=== PATIENT | male | born 1990 | race African-American/Black ===

== ENCOUNTER 2019-11-26 05:10 | Emergency (ER) | payer OTHER ==
[~2019-11-26] VITALS: Ht 172.7 cm; Wt 72.6 kg
[2019-11-26 05:18] VITALS: BP 120/57
[2019-11-26 05:48] VITALS: BP 120/57
== END 2019-11-26 05:47 ==
LOC: MED 05:10
DX: M25.512 Pain in left shoulder (principal); Z98.890 Other specified postprocedural states; Z02.89 Encounter for other administrative examinations; V89.2XXA Person injured in unspecified motor-vehicle accident, traffic, initial encounter; Y93.89 Activity, other specified; Y92.89 Other specified places as the place of occurrence of the external cause; Y99.8 Other external cause status
CPT/HCPCS: 71045; 99283